=== PATIENT | female | born 1980 | race African-American/Black ===

== ENCOUNTER 2016-11-23 07:24 | Emergency (ER) | payer OTHER ==
[~2016-11-23] VITALS: Ht 162.6 cm; Wt 77.1 kg
[~2016-11-23 07:24] MED LIST: FIORICET 50-321 EACH; NORCO 5-325 TA1 EACH PO; TOPROL XL50 MG PO; VICODIN 5-5001 EACH PO
[2016-11-23 07:25] VITALS: BP 148/93
[2016-11-23] MEDS ORDERED: LORAZEPAM 2MG TA2 M1 PO (07:37)
[2016-11-23] MEDS ORDERED: ZOLOFT 50 MG TA50 M1 PO (07:37)
== END 2016-11-23 08:23 | disposition home or self-care (01) ==
LOC: ER 07:24
DX: F43.8 Other reactions to severe stress (principal); I10 Essential (primary) hypertension; F10.99 Alcohol use, unspecified with unspecified alcohol-induced disorder; V89.2XXA Person injured in unspecified motor-vehicle accident, traffic, initial encounter; Y93.89 Activity, other specified; Y92.410 Unspecified street and highway as the place of occurrence of the external cause; Y99.9 Unspecified external cause status